=== PATIENT | male | born 1950 | race African-American/Black ===

== ENCOUNTER 2023-10-19 10:28 | Emergency (ER) | payer OTHER ==
[~2023-10-19 10:28] MED LIST: Iopamidol 370 76% 100 ML VIAL ONE
[2023-10-19] MEDS ORDERED: Sodium Chloride 0.9% 1,000 ML ONE (10:55)
[2023-10-19] MEDS ORDERED: Atropine Sulfate 1 mg/10 ml Syringe ONE (11:08)
[2023-10-19 11:27] LABS: Anion Gap 14 mmol/L (10-20); BUN (Urea Nitrogen) 13 mg/dL (8.4-25.7); Calc. Creatinine Clearance 0 mL/min (70-130); Carbon Dioxide 24 mmol/L (23-31); Chloride 104 mmol/L (98-107); Estimated GFR 75; Glucose 141 mg/dL (83-110); Potassium 3.9 mmol/L (3.5-5.1); Sodium 138 mmol/L (136-145)
[2023-10-19 11:30] LABS: Hematocrit 44.1 % (42.0-52.0); Hemoglobin 13.3 g/dL (14.0-18.0); Lymphocytes 10 % (21-51); MDiff Complete? YES; Manual Diff?? YES; Mean Corpuscular HGB CONC 30.1 g/dL (32.0-36.0); Mean Corpuscular Hemoglobin 26.9 pg (27.0-31.0); Mean Corpuscular Volume 89.3 fl (78.0-98.0); Mean Platelet Volume 6.9 fL (7.4-10.4); Monocytes 7 % (0-10); Neutrophil 75 % (42-75); Platelet Adequacy Comment Appears Adequate; Platelet Count 309 10x3/uL (130-400); RBC Distribution Width 14.2 % (11.5-14.5); Reactive Lymphocytes 8 % (0-10); Red Blood Cell (RBC) Count 4.94 mill/uL (4.70-6.10); Troponin I Less than 0.010 ng/mL (< 0.028); White Blood Cell (WBC) Count 7.5 10x3/uL (4.8-10.8)
[2023-10-19] MEDS ORDERED: Glucagon 1 MG/ML KIT ONE (12:46)
[2023-10-19 13:34] LABS: Bilirubin Negative (Negative); Blood, Urine Negative (Negative); Clarity Clear (Clear); Glucose, Urine (Dipstick) Negative (Negative); Ketone, Urine Negative (Negative); Leukocyte Negative (Negative); Nitrite Negative (Negative); Protein, Urine (Dipstick) Negative (Neg-Trace); Specific Gravity, Urine 1.015 (1.005-1.030); pH, Urine 6.5 (5.0-9.0)
[2023-10-19 13:50] LABS: CAUTI Indications for Culture Dysuria,urgency,freq; RBC/HPF 0-3 HPF (0-3); Squamous Epithelial 0-3 HPF (0-3); WBC/HPF None Seen HPF (0-3)
[2023-10-19 13:51] LABS: Bacteria/HPF Rare-Few HPF (None Seen); Mucous/LPF Few LPF (<2+); Urine Culture Reflex No No
== END 2023-10-19 13:59 | disposition short-term general hospital (02) ==
LOC: MADERS 10:28
DX: R00.1 Bradycardia, unspecified (principal); R55 Syncope and collapse; K21.9 Gastro-esophageal reflux disease without esophagitis; F17.210 Nicotine dependence, cigarettes, uncomplicated; E11.9 Type 2 diabetes mellitus without complications; E78.5 Hyperlipidemia, unspecified; Z79.899 Other long term (current) drug therapy; Z79.84 Long term (current) use of oral hypoglycemic drugs
CPT/HCPCS: 36416; 70496; 70498; 80048; 81001; 84484; 85025; 93005; 96372; 96374; J0461; J1611; J7050; Q9967